=== PATIENT | female | born 1970 | race Caucasian/White ===

== ENCOUNTER 2020-07-10 00:23 | Emergency (ER) | payer BC, OTHER ==
[~2020-07-10] VITALS: Ht 165.1 cm; Wt 93.0 kg
[2020-07-10 02:06] VITALS: BP 138/83
[2020-07-10] MEDS ORDERED: SENNA 8.6 MG TAB PO ONE (02:15)
[2020-07-10] MEDS ORDERED: MAGNESIUM CITRATE SOLUTION 300 ML BTL PO ONE (02:15)
== END 2020-07-10 03:07 | disposition home or self-care (01) ==
LOC: ER 00:25
DX: K59.00 Constipation, unspecified (principal); R19.7 Diarrhea, unspecified; I10 Essential (primary) hypertension; Z98.51 Tubal ligation status
CPT/HCPCS: 74176

== ENCOUNTER 2020-07-21 18:11 | Emergency (ER) | payer BC ==
[~2020-07-21] VITALS: Ht 175.3 cm; Wt 72.6 kg
[2020-07-21] MEDS ORDERED: HYDROcodone-ACET 10/325MG TAB PO ONE (20:45)
[2020-07-21] MEDS ORDERED: ONDANSETRON HCL 4 MG/2 ML VIAL IV ONE (21:30)
[2020-07-21] MEDS ORDERED: MORPHINE SULFATE 4 MG/ML SYR/VIAL IV ONE (21:30)
[2020-07-21] MEDS ORDERED: IOHEXOL 300 MG/ML 100ML BOTTLE IJ ONE (22:00)
[2020-07-21 22:37] LABS: Albumin 3.3 g/dL (3.4-5.0); Calcium 8.9 mg/dL (8.5-10.1); Potassium 3.7 mmol/L (3.5-5.1)
[2020-07-21 22:39] LABS: BUN/Creatinine Ratio 24.5
[2020-07-21 22:42] LABS: Bilirubin, Total 0.5 mg/dL (0.2-1.0); Total Protein 6.4 g/dL (6.4-8.2)
[2020-07-22] MEDS ORDERED: MORPHINE SULFATE 4 MG/ML SYR/VIAL IV ONE (01:15)
[2020-07-22 03:35] VITALS: BP 101/55
== END 2020-07-22 03:46 | disposition home or self-care (01) ==
LOC: ER 18:11 → EDBD 18:11 → ER 07-22 03:46
DX: S16.1XXA Strain of muscle, fascia and tendon at neck level, initial encounter (principal); S20.211A Contusion of right front wall of thorax, initial encounter; R10.9 Unspecified abdominal pain; I10 Essential (primary) hypertension; Z88.8 Allergy status to other drugs, medicaments and biological substances; V89.2XXA Person injured in unspecified motor-vehicle accident, traffic, initial encounter; Y93.89 Activity, other specified; Y92.410 Unspecified street and highway as the place of occurrence of the external cause; Y99.8 Other external cause status
CPT/HCPCS: 36415; 70450; 71045; 71260; 72125; 74177; 80053; 93005; 96374; 96375; 96376; 99285; J2270; J2405; Q9967